=== PATIENT | female | born 2000 | race American Indian/Alaskan Native ===

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

== ENCOUNTER 2020-12-06 16:48 | Outpatient (CLI) | payer MEDICAID ==
[2020-12-06 17:25] VITALS: BP 107/70
[2020-12-06] MEDS ORDERED: TERBUTALINE 1 MG/1 ML INJ SUB-Q ONE ×2 (18:03→19:04)
[2020-12-06] MEDS ORDERED: LACTATED RINGERS 1,000 ML IV SCH (18:15)
== END 2020-12-06 20:40 | disposition home or self-care (01) ==
LOC: TRG 16:48 → APU 16:52 → TRG 20:40
PROVIDERS: ATTEND Obstetrics & Gynecology
DX: O62.9 Abnormality of forces of labor, unspecified (principal); Z3A.33 33 weeks gestation of pregnancy
CPT/HCPCS: 59025; 96360; 96361; 96372; J3105; J7120

== ENCOUNTER 2021-01-07 02:00 | Inpatient (IN) | payer MEDICAID ==
[2021-01-07] MEDS ORDERED: LACTATED RINGERS 1,000 ML ONE (02:27)
[2021-01-07] MEDS ORDERED: AMPICILLIN/NS 2 GM/100 ML 2 GM/100 ML BAG IV ONE ×2 (02:39→02:48)
[2021-01-07] MEDS ORDERED: TERBUTALINE 1 MG/1 ML INJ SUB-Q PRN (02:48)
[2021-01-07] MEDS ORDERED: ePHEDrine SULFATE 50 MG/1 ML INJ IV PRN (02:48)
[2021-01-07] MEDS ORDERED: LIDOCAINE (2%) 20 MG/1 ML VIAL 20 ML MDV INFILTRATI ONE ×2 (02:48→07:13)
[2021-01-07] MEDS ORDERED: ONDANSETRON 4 MG/2 ML INJ IV PRN ×2 (02:48→04:14)
[2021-01-07] MEDS ORDERED: MINERAL OIL 30 ML ORAL LIQD PO PRN (02:48)
[2021-01-07] MEDS: fentaNYL 100 MCG/2 ML INJ IV PRN ×2 (03:00→06:03)
[2021-01-07] MEDS ORDERED: LACTATED RINGERS 1,000 ML IV SCH (03:00)
[2021-01-07] MEDS ORDERED: OXYTOCIN DRIP 30 UNITS/500 ML BAG IV SCH ×2 (03:00→07:00)
[2021-01-07 03:03] LABS: Hematocrit 31.6 % (30.3-42.9); Mean Corpuscular HGB Conc 32 % (30-34); Mean Corpuscular Volume 71 fl (79-97); Platelet Count 216 K/mm3 (140-440); Red Blood Count 4.45 M/mm3 (3.65-5.03); Red Cell Distribution Width 17.3 % (13.2-15.2)
--- NOTE | 2021-01-07 04:06 | History and Physical Report ---
History of Present Illness Date of examination: 01/07/21 Date of admission: 01/07/21 02:48 Chief complaint: Contractions History of present illness: 20-year-old -0-0-1 at 38+3 weeks who presents and active labor with advanced cervical dilatation. The patient denies leakage of fluid. records are currently not available for review. Her GBS status is unknown. Past History Past Medical History: no pertinent history Past Surgical History: no surgical history Social history: single - Obstetrical History Expected Date of Delivery: 01/18/21 Actual Gestation: 38 Week(s) 3 Day(s) : 2 Para: 1 Hx # Term Pregnancies: 1 Number of Pregnancies: 0 Spontaneous Abortions: 0 Induced : 0 Number of Living Children: 1 Medications and Allergies Allergies Allergy/AdvReac Type Severity Reaction Status Date / Time No Known Allergies Allergy Verified 12/20/16 09:24 Home Medications Medication Instructions Recorded Confirmed Last Taken Type Vit-Fe Fumar-FA [ 1 tab PO QDAY 12/06/20 12/06/20 1 Week Ago History Vitamin] ~11/29/20 Active Meds: Active Medications Ephedrine Sulfate (Ephedrine Sulfate 50 Mg/1 Ml Inj) 10 mg IV Q2M PRN PRN Reason: Hypotension Fentanyl (Fentanyl 100 Mcg/2 Ml Inj) 100 mcg IV Q2H PRN PRN Reason: Pain,Severe (7-10) LABOR PAIN Last Admin: 01/07/21 03:00 Dose: 100 mcg Documented by: Lactated Ringer's (Lactated Ringers) 1,000 mls @ 125 mls/hr IV DIRECT JULIAN Last Admin: 01/07/21 03:31 Dose: 125 mls/hr Documented by: Oxytocin/Sodium Chloride (Pitocin/Ns 30 Unit/500ml) 30 units in 500 mls @ 40 mls/hr IV TITR JULIAN; Protocol Mineral Oil (Mineral Oil 30 Ml Oral Liqd) 30 ml PO QHS PRN PRN Reason: Constipation Ondansetron HCl (Ondansetron 4 Mg/2 Ml Inj) 4 mg IV Q8H PRN PRN Reason: Nausea And Vomiting Terbutaline Sulfate (Terbutaline 1 Mg/1 Ml Inj) 0.25 mg SUB-Q ONCE PRN PRN Reason: Hyperstimulation/Hypertonicity Review of Systems All systems: negative Genitourinary: pelvic pain, contractions - Vital Signs Vital signs: Vital Signs Pulse BP 112 H 111/68 01/07/21 02:54 01/07/21 02:54 Temp Pulse Resp BP Pulse Ox 98.3 F 88 20 115/64 01/07/21 03:43 01/07/21 03:54 01/07/21 03:43 01/07/21 03:54 - Physical Exam Breasts: Positive: deferred Cardiovascular: Regular rate Lungs: Positive: Clear to auscultation Abdomen: Positive: normal appearance Results Result Diagrams: 01/07/21 02:40 Abnormal lab results 01/07/21 Range/Units 02:40 Hgb 10.0 L (10.1-14.3) gm/dl MCV 71 L (79-97) fl MCH 23 L (28-32) pg RDW 17.3 H (13.2-15.2) % All other labs normal. Assessment and Plan - Patient Problems (1) Active labor at term Current Visit: Yes Status: Acute Plan to address problem: Admit to labor and delivery
[2021-01-07] MEDS ORDERED: PROMETHAZINE 25 MG RECT SUPP PR PRN (04:14)
[2021-01-07] MEDS ORDERED: LANOLIN/ZINC/DIMETHICONE (LANSINOH) 7 GM TP PRN (04:14)
[2021-01-07] MEDS ORDERED: diphenhydrAMINE 25 MG CAP PO PRN (04:14)
[2021-01-07] MEDS ORDERED: ACETAMINOPHEN 325 MG TAB PO PRN (04:14)
[2021-01-07] MEDS ORDERED: WITCH HAZEL/ GLYCERIN PAD TP PRN (04:14)
[2021-01-07] MEDS ORDERED: PROMETHAZINE 25 MG TAB PO PRN (04:14)
[2021-01-07] MEDS ORDERED: HYDROcodone/ACETAMINOPHEN 5-325 MG TAB PO PRN (04:14)
[2021-01-07] MEDS ORDERED: MAGNESIUM HYDROXIDE (MOM) ORAL LIQD UDC PO PRN (04:14)
[2021-01-07] MEDS ORDERED: IBUPROFEN 600 MG TAB PO SCH (05:00)
[2021-01-07] MEDS ORDERED: AMPICILLIN/NS 1 GM/50 ML 1 GM/50 ML BAG IV SCH ×2 (06:40)
--- NOTE | 2021-01-07 07:56 | Procedure Note ---
OB Delivery Note - Delivery Date of Delivery: 01/07/21 Surgeon: OLIVIA FUNG Estimated blood loss: 100cc - Vaginal Delivery presentation: vertex Delivery position: OP Delivery monitor: external FHT, external uterine Route of delivery: Delivery placenta: spontaneous Delivery cord: 3 umbilical vessels Delivery laceration: 1st degree Anesthesia: none Delivery comments: Patient progressed to complete complete +1 and began pushing. Her second stage was prolonged secondary to ineffective maternal effort. The patient was rested temporarily and resumed pushing. She pushed to deliver a live-born male with Apgars of 8 and 9 weight 7 pounds 15 ounces in OP position. After delivery the head the shoulders delivered without difficulty. The was noted to have a body cord. The cord was clamped and cut and the was placed on the warmer. The placenta delivered spontaneously intact with a three-vessel cord. The patient sustained a small midline first-degree laceration that was left on repair. Estimated blood loss of 100 mL - A at 1 minute: 8 at 5 minutes: 9 Gender: Male (Weight 7 pounds 15 ounces)
[2021-01-07] MEDS: IBUPROFEN ORAL LIQD 100 MG/5 ML ORAL.LIQD PO SCH (12:05)
[2021-01-07 15:43] LABS: Hematocrit 28.6 % (30.3-42.9); Hemoglobin 9.1 gm/dl (10.1-14.3)
[2021-01-08] MEDS: IBUPROFEN ORAL LIQD 100 MG/5 ML ORAL.LIQD PO SCH ×4 (00:06→20:17)
--- NOTE | 2021-01-08 07:42 | Progress Note ---
Assessment and Plan - Patient Problems (1) Status post normal vaginal delivery Current Visit: Yes Status: Acute Plan to address problem: Continue routine PP orders Anticipate d/c home tomorrow if stable (2) Anemia Current Visit: Yes Status: Acute Qualifiers: Anemia type: iron deficiency Plan to address problem: Asymptomatic Continue daily oral iron supplementation as directed Increase iron rich foods into diet Subjective - Subjective Date of service: 01/08/21 Principal diagnosis: S/P ; PPD#1 Interval history: 20-year-old -0-0-1 at 38+3 weeks who presents and active labor with advanced cervical dilatation. The patient denies leakage of fluid. records are currently not available for review. Her GBS status is unknown. Patient reports: appetite normal, voiding normally, pain well controlled, flatus, ambulating normally [place]: doing well, bottle feeding Objective - Vital Signs Latest vital signs: Vital Signs Temp Pulse Resp BP BP Pulse Ox 01/08/21 06:12 20 01/08/21 01:25 98.2 F 87 20 126/82 100 01/08/21 00:06 20 01/07/21 16:27 98.1 F 81 18 134/82 100 01/07/21 11:20 99.4 F 90 18 118/68 01/07/21 10:58 104 H 110/58 01/07/21 10:56 98.9 F 01/07/21 09:02 100 H 109/62 01/07/21 08:54 98.6 F Intake and Output 01/07/21 01/07/21 01/08/21 15:59 23:59 07:59 Output Total 800 700 Balance -800 -700 Output: Urine 800 700 Void 800 700 Other: Total, Output Amount 800 700 # Voids Void 1 1 1 Estimated Blood Loss 100 - Exam Breasts: Present: normal Cardiovascular: Present: Regular rate Lungs: Present: Normal air movement Abdomen: Present: soft, distention Uterus: Present: firm, fundal height below umbilicus (U-2) Extremities: Present: normal Deep Tendon Reflex Grade: Normal +2 Incision: Present: other (1st laceration, healing as expected) - Labs Labs: Abnormal lab results 01/07/21 Range/Units 15:08 Hgb 9.1 L (10.1-14.3) gm/dl Hct 28.6 L (30.3-42.9) %
[2021-01-08] MEDS: FERROUS SULFATE 325 MG TAB PO SCH ×2 (10:14→21:45)
[2021-01-09] MEDS: IBUPROFEN ORAL LIQD 100 MG/5 ML ORAL.LIQD PO SCH (06:38)
--- NOTE | 2021-01-09 08:01 | Discharge Summary ---
Providers - Providers Date of Admission: 01/07/21 02:48 Date of discharge: 01/09/21 Attending physician: OLIVIA FUNG Primary care physician: RITESH MOHAMUD Hospitalization Reason for admission: active labor Delivery: Episiotomy: none Laceration: 1st degree (healing as expected) Other procedures: none complications: none Discharge diagnosis: IUP at term delivered baby: male Hospital course: 20-year-old -0-0-1 at 38+3 weeks who presents and active labor with advanced cervical dilatation. The patient denies leakage of fluid. Patient progressed to complete complete +1 and began pushing. Her second stage was prolonged secondary to ineffective maternal effort. The patient was rested temporarily and resumed pushing. She pushed to deliver a live-born male with Apgars of 8 and 9 weight 7 pounds 15 ounces in OP position. After delivery the head the shoulders delivered without difficulty. The infant was noted to have a body cord. The cord was clamped and cut and the was placed on the warmer. The placenta delivered spontaneously intact with a three-vessel cord. The patient sustained a small midline first-degree laceration that was left on repair. Estimated blood loss of 100 mL Condition at discharge: Good Disposition: DC-01 TO HOME OR SELFCARE - Discharge Diagnoses (1) Status post normal vaginal delivery Status: Acute (2) Anemia Status: Acute Qualifiers: Anemia type: iron deficiency Comment: Asymptomatic Plan - Discharge Medications Prescriptions: Ferrous Sulfate [Feosol 325 MG tab] 325 mg PO BID 30 Days #60 tablet - Provider Discharge Summary Activity: routine, no sex for 6 weeks, no heavy lifting 4 weeks, no strenuous exercise Diet: other (Iron rich diet) Instructions: routine Additional instructions: [] Smoking cessation referral if applicable(refer to patient education folder for contact #) [] Refer to [facility] Booklet Call your doctor immediately for: * Fever > 100.5 * Heavy vaginal bleeding ( >1 pad per hour) * Severe persistent headache * Shortness of breath * Reddened, hot, painful area to leg or breast * Drainage or odor from incision. * Keep vaginal laceration site clean and dry at all times and follow doctor's instructions regarding bathing/showering - Follow up plan Follow up: RITESH MOHAMUD MD [Primary Care Provider] - 6 Weeks
[2021-01-09] MEDS ORDERED: IBUPROFEN 800 MG TAB PO PRN (08:30)
[2021-01-09 12:59] VITALS: BP 106/70
== END 2021-01-09 12:25 | disposition home or self-care (01) | DRG 775 ==
LOC: TRG 02:00 → APU 02:01 → LD 02:48 → TRG 02:48 → LD 02:50 → OB 11:18
PROVIDERS: ADMIT Obstetrics & Gynecology; ATTEND Obstetrics & Gynecology
PROC: 10E0XZZ Delivery of Products of Conception, External Approach (ICD-10-PCS; principal; 2021-01-07)
PROC: 0HQ9XZZ Repair Perineum Skin, External Approach (ICD-10-PCS; 2021-01-07)
DX: O99.02 Anemia complicating childbirth (principal); O70.0 First degree perineal laceration during delivery; D50.8 Other iron deficiency anemias; Z20.822 Contact with and (suspected) exposure to COVID-19; Z3A.38 38 weeks gestation of pregnancy; Z37.0 Single live birth
CPT/HCPCS: 36415; 59025; 85014; 85018; 85027; 86592; 86850; 86900; 86901; G0378; J0290; J2590; J3010; J7120; U0003